=== PATIENT | female | born 1995 | race Two or more races ===

== ENCOUNTER 2023-04-29 08:46 | Outpatient (CLI) | payer OTHER | END 2023-04-29 08:52 | disposition home or self-care (01) | LOC: PRENATAL 08:46 | PROVIDERS: ATTEND Obstetrics & Gynecology Maternal & Fetal Medicine | DX: O36.80X0 Pregnancy with inconclusive fetal viability, not applicable or unspecified (principal); Z36.82 Encounter for antenatal screening for nuchal translucency; Z3A.13 13 weeks gestation of pregnancy ==

== ENCOUNTER 2023-07-22 08:32 | Outpatient (CLI) | payer OTHER | END 2023-07-22 08:33 | disposition home or self-care (01) | LOC: PRENATAL 08:32 | PROVIDERS: ATTEND Obstetrics & Gynecology Maternal & Fetal Medicine | DX: O35.3XX0 Maternal care for (suspected) damage to fetus from viral disease in mother, not applicable or unspecified (principal); O44.00 Complete placenta previa NOS or without hemorrhage, unspecified trimester; Z3A.25 25 weeks gestation of pregnancy ==

== ENCOUNTER 2023-10-20 14:00 | Inpatient (IN) | payer OTHER ==
[~2023-10-20] VITALS: Ht 162.6 cm; Wt 3.6 kg
[2023-11-08] MEDS ORDERED: AMPICILLIN SODIUM 2,000 MG VIAL ONE (03:09)
[2023-11-08] MEDS ORDERED: AMPICILLIN SODIUM 2,000 MG VIAL IV ONE (03:30)
[2023-11-08] MEDS ORDERED: RINGERS SOLUTION,LACTATED 1,000 ML IV SCH (03:30)
[2023-11-08 04:42] LABS: URINE APPEARANCE Cloudy; URINE BILIRRUBIN Negative (NEGATIVE); URINE BLOOD Negative; URINE COLOR Yellow; URINE GLUCOSE Negative (NEGATIVE); URINE KETONE Negative (NEGATIVE); URINE LEUKOCYTE Negative; URINE NITRATE Negative; URINE PROTEIN Negative (NEGATIVE); URINE UROBILINOGEN 0.2 E.U./dl
[2023-11-08 04:44] LABS: HEMATOCRIT 30.1 % (36.0-45.00); MEAN CELL VOLUME 76.6 fL (80.00-100.00); MEAN CORPUSCULAR HEMOGLOBIN 25.4 pg (27.00-32.0); MEAN CORPUSCULAR HGB CONC 33.1 g/dl (32.0-36.0); RED BLOOD COUNT 3.93 M/uL (4.00-6.00); RED CELL DISTRIBUTION WIDTH 16.7 % (11.5-14.5)
[2023-11-08 04:46] LABS: URINE BACTERIA 3381.6 uL (0.0-1933); URINE EPITHELIAL CELLS 189.3 uL (0.0-38.8); URINE RBC 42.6 uL (0.0-20.8); URINE WBC 27.8 uL (0.0-23.2)
[2023-11-08 04:51] LABS: INR 0.96; PARTIAL THROMBOPLASTIN TIME 27.8 SECONDS (22.0-34.0); PROTHROMBIN TIME 10.1 SECONDS (9.0-11.5)
[2023-11-08 04:55] LABS: ALBUMIN 2.9 gm/dL (3.4-5.0); BILIRUBIN TOTAL 0.22 mg/dL (0.3-1.2); CREATININE SERUM 0.63 mg/dL (0.55-1.02); GFR 112.52; GLOBULINA 3.3 G/DL (2.4-3.5); POTASSIUM 4.41 mEq/L (3.5-5.1); TOTAL PROTEIN 6.2 gm/dL (6.4-8.2)
[2023-11-08] MEDS ORDERED: AMPICILLIN SODIUM 1,000 MG VIAL IV SCH ×2 (05:00→08:00)
[2023-11-08 05:34] LABS: PLATELET COUNT 128 K/uL (150-450)
[2023-11-08] MEDS ORDERED: CEFAZOLIN SODIUM 1,000 MG VIAL ONE (13:37)
[2023-11-08] MEDS ORDERED: OXYTOCIN 10 UNITS/ML VIAL ONE ×2 (13:55→16:39)
[2023-11-08] MEDS ORDERED: ERYTHROMYCIN BASE 1 GM TUBE OP ONE (13:56)
[2023-11-08] MEDS ORDERED: CEFAZOLIN SODIUM 1,000 MG VIAL IV ONE (14:15)
[2023-11-08] MEDS ORDERED: MORPHINE SULFATE 4 MG/ML CARTRIDGE IV PRN (15:30)
[2023-11-08] MEDS ORDERED: OXYTOCIN 1,000 ML IV SCH (16:15)
[2023-11-08] MEDS ORDERED: DOCUSATE SODIUM 100MG CAP PO SCH (17:00)
[2023-11-08] MEDS ORDERED: SIMETHICONE 125 MG CAPSULE PO SCH (18:00)
[2023-11-08 23:15] LABS: HEMATOCRIT 35.5 % (36.0-45.00); HEMOGLOBIN 11.5 g/dL (12.0-15.00); MEAN CELL VOLUME 77.4 fL (80.00-100.00); MEAN CORPUSCULAR HEMOGLOBIN 25.2 pg (27.00-32.0); MEAN CORPUSCULAR HGB CONC 32.5 g/dl (32.0-36.0); PLATELET COUNT 145 K/uL (150-450); RED BLOOD COUNT 4.59 M/uL (4.00-6.00); RED CELL DISTRIBUTION WIDTH 17.1 % (11.5-14.5)
[2023-11-09] MEDS ORDERED: ACETAMINOPHEN 500 MG GEL..CAP PO PRN (07:00)
[2023-11-09] MEDS ORDERED: IBUprofen 800 MG TABLET PO PRN (09:00)
[2023-11-11] MEDS ORDERED: IBUPROFEN800 MG PO (08:20)
== END 2023-11-11 14:16 | disposition home or self-care (01) | DRG 788 ==
LOC: OB/GYN 11-06 07:00 → LDR 11-08 03:04 → OB/GYN 11-08 15:01
PROVIDERS: Obstetrics & Gynecology; ADMIT Specialist; ATTEND Specialist
PROC: 4A1HXCZ Monitoring of Products of Conception, Cardiac Rate, External Approach (ICD-10-PCS; 2023-11-08)
PROC: 10D00Z1 Extraction of Products of Conception, Low, Open Approach (ICD-10-PCS; principal; 2023-11-08 14:30)
DX: O33.8 Maternal care for disproportion of other origin (principal); O42.12 Full-term premature rupture of membranes, onset of labor more than 24 hours following rupture; O48.0 Post-term pregnancy; Z3A.40 40 weeks gestation of pregnancy; Z37.0 Single live birth; Z20.822 Contact with and (suspected) exposure to COVID-19